=== PATIENT | male | born 1975 ===

== ENCOUNTER → 2020-08-21 | Outpatient (REF) | payer SELFPAY ==
[2020-08-21 22:47] LABS: INFLUENZA A AMPLIFICATION NEGATIVE (NEGATIVE); INFLUENZA B AMPLIFICATION NEGATIVE (NEGATIVE)
== END ==
LOC: M LAB REF 21:12
PROVIDERS: ATTEND Physician Assistant Medical
DX: R05 Cough (principal); J11.1 Influenza due to unidentified influenza virus with other respiratory manifestations